=== PATIENT | female | born 2005 | race Caucasian/White ===

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

== ENCOUNTER 2024-04-14 01:25 | Emergency (ER) | payer MEDICAID, SELFPAY ==
[2024-04-14 02:00] VITALS: BP 137/90; PULSE 85; RESP 20; TEMP 36.6; O2SAT 100; BMI 28.3
[2024-04-14 03:38] LABS: Basophils # 0.1 10^3/uL (0.0-0.1); Basophils % 0.6 %; Eosinophils # 0.1 10^3/uL (0.0-0.8); Eosinophils % 0.8 %; Hematocrit 39.1 % (36-47); Lymphocytes # 1.9 10^3/uL (1.5-6.5); Lymphocytes % 15.5 %; Mean Corpuscular HGB Conc 32.5 g/dL (30-55); Mean Corpuscular Volume 86.3 fl (85-98); Mean Platelet Volume 9.2 fL (7.4-10.4); Monocytes # 0.7 10^3/uL (0.2-0.9); Monocytes % 5.9 %; Neutrophils # 9.32 10^3/uL (1.8-8.0); Neutrophils % 76.9 %; Nucleated Red Blood Cells % 0 %; Platelet Count 358 10^3/cmm (157-399); Red Blood Count 4.53 10^6/uL (3.85-5.65); White Blood Count 12.13 10^3/uL (4.5-13.0)
[2024-04-14 03:46] LABS: Bilirubin Urine Negative (Negative); Blood Urine Negative (Negative); Glucose Urine UA Negative (Normal); Ketones Urine Negative (Negative); Leukocyte Esterase Urine Negative (Negative); Nitrate Urine Negative (Negative); Protein Urine Trace (Negative); Urine Appearance Clear (CLEAR); Urine Color Yellow (Yellow); pH Urine 5.5 (5-7)
[2024-04-14 03:51] LABS: Add Urine Microscopic? YES; Bacteria Urine None Seen /hpf; RBC Urine 0-2 /hpf (0-2); Squamous Epithelial Cell Urine 0-5 /hpf (0-5); WBC Urine 0-5 /hpf (0-5)
[2024-04-14 03:54] LABS: HCG Quantitative < 1.00 mIU/mL
[2024-04-14 03:55] LABS: Specific Gravity, Urine 1.038 (1.005-1.030)
--- NOTE | 2024-04-14 04:03 | W.ED.ABDPA2 ---
HPI - Abdominal Pain General: Chief Complaint: Abdominal Pain Stated Complaint: Sharp Pain Possible Time Seen by Provider: 04/14/24 03:34 History of Present Illness: 18-year-old female who began to get lower abdominal/pelvic pain during intercourse earlier this morning. No vaginal bleeding or discharge. No vomiting. She did get nauseated. Pain is improved significantly now. She says she is 2 weeks late for her menstrual period. 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 She has never been . Related Data Home Medications Medication Instructions Recorded Confirmed atomoxetine 40 mg capsule 40 mg PO DAILY 11/24/20 11/24/20 (Strattera) norelgestromin 150 mcg-e.estradiol See Rx Instructions .Route .COMPLEX 11/24/20 11/24/20 35 mcg/24 hr weekly transderm patch (Zafemy) Previous Rx's Medication Instructions Recorded albuterol sulfate 90 mcg/actuation 2 puff inhalation Q4H PRN 03/22/19 aerosol inhaler (ProAir HFA) shortness of breath or wheezing #8.5 grams polyethylene glycol 3350 17 17 gm PO BID #510 grams 03/22/19 gram/dose oral powder Allergies Allergy/AdvReac Type Severity Reaction Status Date / Time No Known Allergies Allergy Verified 03/22/19 08:08 [facility] ED PFSH: Medical History (Updated 04/14/24 @ 04:44 by Jean Carlos Nation DO) ADHD Congenital nystagmus Asthma Surgical History History of intestinal surgery Social History Smoking and tobacco/nicotine status: never used tobacco/nicotine Second hand smoke exposure: No (parents smoke outside) Alcohol intake: never Substance/Drug Use: never Adopted: No Highest education level completed: 9th Grade Physical Exam Const: COMMON NORMALS: no acute distress GENERAL APPEARANCE: cooperative; not ill appearing and not frail appearing HENMT: COMMON NORMALS: normocephalic, atraumatic and Normal external nose present HEAD & SCALP: normocephalic and atraumatic FACE & SINUS: normal facial exam and face symmetric NOSE: Normal external nose present Eye: COMMON NORMALS: Equal, round and reactive pupils present and EOMs intact bilaterally PUPIL: Yes Equal, round and reactive pupils present Neck/C-Spine: GENERAL: Yes trachea midline Chest: CHEST: Yes Symmetrical chest wall rise Resp: COMMON NORMALS: normal respiratory effort, No retractions, No use of accessory muscles and clear to auscultation bilaterally AUSCULTATION: clear to auscultation bilaterally Cardio: COMMON NORMALS: regular rate and regular rhythm RATE: regular rate RHYTHM: regular rhythm GI: COMMON NORMALS: Normal to inspection, nondistended, normoactive bowel sounds present Extremity: COMMON NORMALS: no pedal edema Neuro: AYE COMA SCALE: document GCS findings [place] coma scale eye opening: Spontaneous [place] coma scale verbal response: Orientated [place] coma scale motor response: [place]bey commands [place] coma scale total score: 15 SENSORY EXAM: Yes extremities (intact) Psych: COMMON NORMALS: speech normal SPEECH: Yes normal speech Skin: COMMON NORMALS: no rashes or lesions noted GENERAL SKIN EXAM: no rashes or lesions noted Course Vital Signs: Vital signs: Vital Signs Temperature 98 F 04/14/24 02:00 Pulse Rate 81 04/14/24 05:02 Respiratory Rate 16 04/14/24 05:02 Blood Pressure 117/76 04/14/24 05:02 Pulse Oximetry 98 04/14/24 05:02 MDM - Abdominal Pain Medical Decision Making 18-year-old female with pelvic pain with intercourse. No vaginal discharge or bleeding. Her CBC is normal. Her BMP is normal. She is not . Urinalysis is negative. Pain is improved. She is given Toradol here. She will be discharged. Outpatient follow-up. She will be set up as an outpatient for outpatient ultrasound, should her pain continue. She declined pelvic exam today. Lab Data 04/14/24 03:29 04/14/24 03:29 Labs/Radiology: Laboratory Results WBC 12.13 10^3/uL (4.5-13.0) 04/14/24 03:29 RBC 4.53 10^6/uL (3.85-5.65) 04/14/24 03:29 Hgb 12.70 g/dL (12.4-14.8) 04/14/24 03:29 Hct 39.1 % (36-47) 04/14/24 03:29 MCV 86.3 fl (85-98) 04/14/24 03:29 MCH 28.0 pg (27-33) 04/14/24 03: MCHC 32.5 g/dL (30-55) 04/14/24 03: RDW 14.0 % (12.1-15.1) 04/14/24 03: Plt Count 358 10^3/cmm (157-399) 04/14/24 03: MPV 9.2 fL (7.4-10.4) 04/14/24 03: Neut % (Auto) 76.9 % 04/14/24 03: Lymph % (Auto) 15.5 % 04/14/24 03: [place] % (Auto) 5.9 % 04/14/24 03: Eos % (Auto) 0.8 % 04/14/24 03: Baso % (Auto) 0.6 % 04/14/24 03: Neut # (Auto) 9.32 10^3/uL (1.8-8.0) H 04/14/24 03: Lymph # (Auto) 1.9 10^3/uL (1.5-6.5) 04/14/24 03: [place] # (Auto) 0.7 10^3/uL (0.2-0.9) 04/14/24 03: Eos # (Auto) 0.1 10^3/uL (0.0-0.8) 04/14/24 03: Baso # (Auto) 0.1 10^3/uL (0.0-0.1) 04/14/24 03: Nucleated RBC % (auto) 0 % 04/14/24 03: Nucleated RBCs # 0.0 /100WBC 04/14/24 03: Sodium 139 mmol/L (136-145) 04/14/24 03: Potassium 4.0 mmol/L (3.5-5.1) 04/14/24 03: Chloride 104 mmol/L (98-107) 04/14/24 03: Carbon Dioxide 22 mmol/L (22-29) 04/14/24 03: Anion Gap 17.0 (5-19) 04/14/24 03: BUN 13 mg/dL (6-20) 04/14/24 03:29 Creatinine 0.6 mg/dL (0.5-0.9) 04/14/24 03:29 GFR Calculation 127.5 mL/min (90-130) 04/14/24 03:29 Glucose 101 mg/dL (65-115) 04/14/24 03:29 Calculated Osmolality 288 mOsm/kg (285-295) 04/14/24 03:29 Calcium 9.2 mg/dL (8.5-10.5) 04/14/24 03:29 Total Bilirubin 0.4 mg/dL (0.15-1.2) 04/14/24 03:29 AST 14 U/L (0-32) 04/14/24 03:29 ALT 12 U/L (0-33) 04/14/24 03:29 Alkaline Phosphatase 87 U/L (35-105) 04/14/24 03:29 Total Protein 7.6 g/dL (6.6-8.7) 04/14/24 03:29 Albumin 4.5 g/dL (3.5-5.2) 04/14/24 03:29 Globulin 3.1 g/dL (1.3-4.6) 04/14/24 03:29 Ser , Semi-Qnt < 1.00 mIU/mL 04/14/24 03:29 Urine Color Yellow (Yellow) 04/14/24 03:17 Urine Appearance Clear (CLEAR) 04/14/24 03:17 Urine pH 5.5 (5-7) 04/14/24 03:17 Ur Specific [place] 1.038 (1.005-1.030) H 04/14/24 03:17 Urine Protein Trace (Negative) A 04/14/24 03:17 Urine Glucose (UA) Negative (Normal) 04/14/24 03:17 Urine Ketones Negative (Negative) 04/14/24 03:17 Urine Blood Negative (Negative) 04/14/24 03:17 Urine Nitrate Negative (Negative) 04/14/24 03:17 Urine Bilirubin Negative (Negative) 04/14/24 03:17 Urine Urobilinogen 1.0 mg/dL (Negative) 04/14/24 03:17 Ur Leukocyte Esterase Negative (Negative) 04/14/24 03:17 Urine RBC 0-2 /hpf (0-2) 04/14/24 03:17 Urine WBC 0-5 /hpf (0-5) 04/14/24 03:17 Ur Squamous Epith Cells 0-5 /hpf (0-5) 04/14/24 03:17 Amorphous Sediment Not Reportable 04/14/24 03:17 Urine Bacteria None seen /hpf (NONE) 04/14/24 03:17 Hyaline Casts 0.40 /lpf 04/14/24 03:17 All radiology interpretation(s) finalized by discharge Discharge Plan Discharge Patient Disposition: Home Clinical Impression: Pelvic pain Condition: Stable Prescriptions: No Action albuterol sulfate [ProAir HFA] 90 mcg/actuation HFA aerosol inhaler 2 puff INHALATION Q4H PRN (Reason: shortness of breath or wheezing) Qty: 8.5 3RF polyethylene glycol 3350 17 gram/dose powder 17 gm PO BID Qty: 510 2RF Rx Instructions: Mix 1 capful in 6-8 ounces of water twice daily; may use 3 times daily over the weekend to promote clean-out. Zafemy 150-35 mcg/24 hr patch weekly See Rx Instructions .ROUTE .COMPLEX Rx Instructions: 1 patch transdermally once a week for 3 weeks, then off for 1 week. Strattera 40 mg capsule 40 mg PO DAILY Discharge Orders: Discharge ED (Routine); Ordered 04/14/24 Ordered By: Jean Carlos Nation Referrals: [facility], [Primary Care Provider] - Patient Instructions: Pelvic Pain (ED), Opioid Safety, Pain Management Activity Restrictions/Additional Instructions: Return to the emergency department for brisk vaginal bleeding, soaking a pad an hour for more than 3 hours, development of significant vaginal discharge, worsening pain, fever, any other concerning symptoms. See your doctor this week. No intercourse until pain is resolved, and any bleeding is resolved as well. Coding Level of Care Code ED Court Usher for Naomi Ramírez
[2024-04-14 04:09] LABS: Alanine Aminotransferase 12 U/L (0-33); Albumin Level 4.5 g/dL (3.5-5.2); Alkaline Phosphatase 87 U/L (35-105); Aspartate Amino Transferase 14 U/L (0-32); Blood Urea Nitrogen 13 mg/dL (6-20); Calcium 9.2 mg/dL (8.5-10.5); Carbon Dioxide 22 mmol/L (22-29); Chloride 104 mmol/L (98-107); Creatinine Clr Calc Pharmacy 131.9757; Globulin 3.1 g/dL (1.3-4.6); Glomerular Filtration Rate 127.5 mL/min (90-130); Glucose 101 mg/dL (65-115); Osmolality Calculated 288 mOsm/kg (285-295); Sodium 139 mmol/L (136-145); Total Bilirubin 0.4 mg/dL (0.15-1.2); Total Protein 7.6 g/dL (6.6-8.7)
[2024-04-14] MEDS: ketorolac 30 mg/mL INJ IVP (04:58)
[2024-04-14] MEDS: ondansetron 2 mg/ML SDV 2 mL 4 MG IVP (04:59)
[2024-04-14 05:02] VITALS: BP 117/76; PULSE 81; RESP 16; O2SAT 98
--- NOTE | 2024-04-15 07:56 | DCPLANNER ---
faxed outpatient u/s to scheduling for er f/u
== END 2024-04-14 05:06 | disposition home or self-care (01) ==
PROVIDERS: Emergency Provider Emergency Medicine
DX: R10.2 Pelvic and perineal pain (principal)
CPT/HCPCS: 80053; 81001; 84702; 85025; 96374; 96375; 99284; J1885; J2405

== ENCOUNTER 2024-05-06 13:59 | Outpatient (CLI) | payer SELFPAY ==
--- NOTE | 2024-05-06 14:05 | US_ITS ---
WS: [id number] US pelvic limited [id number] HISTORY: PELVIC PAIN COMPARISON: 06/22/2021 Uterus: 6.4 cm x 5.7 cm x 3.4 cm. Normal size anteverted uterus. No fibroid or mass. Endometrium: 0.6 cm. Negative. Right ovary: 3.1 cm x 2.1 cm x 2.2 cm. Normal size and vascularity, no cystic or solid masses. Left ovary: LEFT ovary is not identified. No adnexal mass. No free fluid in the cul-de-sac. US/US pelvic limited [id number] IMPRESSION: 1. Extremely limited pelvic ultrasound. Patient arrived with a nondistended bl adder and refused transvaginal imaging. 2. LEFT ovary not visualized. 3. Uterus and RIGHT ovary as visualized are negative.
== END 2024-05-06 14:00 | disposition home or self-care (01) ==
LOC: RAD 14:02
PROVIDERS: PCP Family Medicine; Visit Provider Emergency Medicine
DX: R10.2 Pelvic and perineal pain (principal)
CPT/HCPCS: 76857

== ENCOUNTER → 2024-06-25 09:00 | Outpatient (BNVA) | payer SELFPAY | PROVIDERS: PCP Family Medicine; Visit Provider Nurse Practitioner Women's Health | DX: N91.2 Amenorrhea, unspecified (principal); Z32.01 Encounter for pregnancy test, result positive | CPT/HCPCS: 81025; 84702; 86850; 86900 ==

== ENCOUNTER → 2024-07-04 14:00 | Outpatient (BNVA) | payer SELFPAY | PROVIDERS: PCP Family Medicine; Visit Provider Nurse Practitioner Women's Health | DX: Z36.9 Encounter for antenatal screening, unspecified (principal) | CPT/HCPCS: 76801 ==

== ENCOUNTER → 2024-07-18 10:52 | Outpatient (BNVA) | payer MEDICAID, SELFPAY | PROVIDERS: PCP Family Medicine; Visit Provider Nurse Practitioner Women's Health | DX: Z34.90 Encounter for supervision of normal pregnancy, unspecified, unspecified trimester (principal) | CPT/HCPCS: 80307; 84315; 84443; 85025; 86592; 86762; 86803; 87086; 87340; 87491; 87591; 87661; 87806 ==

== ENCOUNTER → 2024-08-01 14:52 | Outpatient (BNVA) | payer MEDICAID, SELFPAY | PROVIDERS: PCP Family Medicine; Visit Provider Obstetrics & Gynecology | DX: Z34.90 Encounter for supervision of normal pregnancy, unspecified, unspecified trimester (principal) | CPT/HCPCS: 84315 ==

== ENCOUNTER → 2024-08-22 14:22 | Outpatient (BNVA) | payer MEDICAID, SELFPAY | PROVIDERS: PCP Family Medicine; Visit Provider Nurse Practitioner Women's Health | DX: Z34.90 Encounter for supervision of normal pregnancy, unspecified, unspecified trimester (principal) | CPT/HCPCS: 84315 ==

== ENCOUNTER → 2024-09-19 14:32 | Outpatient (BNVA) | payer MEDICAID, SELFPAY | PROVIDERS: PCP Family Medicine; Visit Provider Obstetrics & Gynecology | DX: Z36.9 Encounter for antenatal screening, unspecified (principal) | CPT/HCPCS: 76805 ==

== ENCOUNTER → 2024-09-26 14:40 | Outpatient (BNVA) | payer MEDICAID, SELFPAY | PROVIDERS: PCP Family Medicine; Visit Provider Obstetrics & Gynecology | DX: Z34.02 Encounter for supervision of normal first pregnancy, second trimester (principal) | CPT/HCPCS: 84315 ==

== ENCOUNTER → 2024-10-11 12:05 | Outpatient (BNVA) | payer MEDICAID, SELFPAY | PROVIDERS: PCP Family Medicine; Visit Provider Nurse Practitioner Women's Health | DX: Z34.90 Encounter for supervision of normal pregnancy, unspecified, unspecified trimester (principal) | CPT/HCPCS: 84315; 84439; 84443; 84481 ==

== ENCOUNTER 2024-10-14 08:54 | Outpatient (CLI) | payer MEDICAID, SELFPAY ==
[2024-10-14] VITALS (13 sets, daily range): BP systolic 105–108; BP diastolic 62–66; PULSE 81–91; RESP 17; O2SAT 97–99; BMI 27.9
[2024-10-14 09:38] LABS: Glucose Urine UA Negative (Normal); Nitrate Urine Negative (Negative); Specific Gravity, Urine 1.022 (1.005-1.030)
[2024-10-14] MEDS: nitrofurantoin SR (BID) 100 mg Capsule PO (10:12)
== END 2024-10-14 10:13 | disposition home or self-care (01) ==
LOC: OPOB 08:58 → OBGYN 08:59
PROVIDERS: PCP Family Medicine; Visit Provider Obstetrics & Gynecology
DX: O99.891 Other specified diseases and conditions complicating pregnancy (principal); Z3A.00 Weeks of gestation of pregnancy not specified
CPT/HCPCS: 81001; 87086; 99211; J9999

== ENCOUNTER → 2024-11-13 16:51 | Outpatient (BNVA) | payer MEDICAID, SELFPAY | PROVIDERS: PCP Family Medicine; Visit Provider Obstetrics & Gynecology | DX: Z34.90 Encounter for supervision of normal pregnancy, unspecified, unspecified trimester (principal) | CPT/HCPCS: 82950; 84315; 85025 ==

== ENCOUNTER → 2024-11-28 16:16 | Outpatient (BNVA) | payer MEDICAID, SELFPAY | PROVIDERS: PCP Family Medicine; Visit Provider Obstetrics & Gynecology | DX: Z34.90 Encounter for supervision of normal pregnancy, unspecified, unspecified trimester (principal) | CPT/HCPCS: 84315 ==

== ENCOUNTER 2024-12-11 11:11 | Outpatient (CLI) | payer MEDICAID, SELFPAY ==
--- NOTE | 2024-12-11 11:00 | USR_ITS ---
PROCEDURE INFORMATION: Exam: US , Follow up Exam date and time: 12/11/2024 11:27 AM Age: 19 years old Clinical indication: Screening exam; Routine US, uterus; Additional info: Z34.90 - encounter for supervision of normal , u. . . , LABS AND CLINICAL REPORTS: Gestational age (Established): 33 w 0 d Estimated due date (Established): 01/29/2025 TECHNIQUE: Imaging protocol: Transabdominal ultrasound of the uterus, real time with image documentation. Follow-up (eg, re-evaluation of size by measuring standard growth parameters and amniotic fluid volume, re-evaluation of organ system(s) suspected or confirmed to be abnormal on a previous scan). COMPARISON: US OB >= 14 weeks fetus [id number] 09/19/2024 2:40 PM FINDINGS: Gestation: Single intrauterine gestation in the cephalic presentation. heart rate: 138 bpm Amniotic fluid index: TRINA is 13.19 cm. Largest pocket measures 3.9 cm. Placenta: Posterior and unremarkable. BIOMETRY: Estimated weight: 2121.6 g (4 lb 11 oz) EFW by AC, BPD, FL, HC, [place] 1985 44.1 percentile. Biparietal diameter (BPD): 8.28 cm. EGA (BPD) is 33 w 2 d. 52.9 % percentile Head circumference (HC): 30.22 cm. EGA (HC) is 33 w 4 d. 26.6 % percentile Abdominal circumference (AC): 28.99 cm. EGA (AC) is 33 w 0 d. 50.8 % percentile Femur length (FL): 6.41 cm. EGA (FL) is 33 w 1 d. 41 % percentile AUA: 33 weeks 2 days with AGNES 01/27/2025 HC/AC: 1.04. (Normal range: 0.96 - 1.11) FL/HC: 21.21. (Normal range: 19.76 - 21.59) FL/BPD: 77.42. (Normal range: 71 - 87) FL/AC: 22.11. (Normal range: 20 - 24) MATERNAL: Cervix: Cervical length measures 5.2 cm. Appears long and closed. US/[place] [id number] IMPRESSION: 1. Single intrauterine gestation in the cephalic presentation with FHR 138 bpm. 2. Posterior placenta, unremarkable. 3. AUA 33 weeks 2 days with EFW 2121.6 g (4 lb 11 oz) at 44.1 percentile. 4. TRINA 13.19 cm.
== END 2024-12-11 11:12 | disposition home or self-care (01) ==
LOC: RAD 11:12
PROVIDERS: PCP Family Medicine; Visit Provider Obstetrics & Gynecology
DX: Z34.93 Encounter for supervision of normal pregnancy, unspecified, third trimester (principal); Z3A.33 33 weeks gestation of pregnancy
CPT/HCPCS: 76816

== ENCOUNTER → 2024-12-12 16:03 | Outpatient (BNVA) | payer MEDICAID, SELFPAY | PROVIDERS: PCP Family Medicine; Visit Provider Obstetrics & Gynecology | DX: Z34.90 Encounter for supervision of normal pregnancy, unspecified, unspecified trimester (principal) | CPT/HCPCS: 84315 ==

== ENCOUNTER → 2024-12-26 15:01 | Outpatient (BNVA) | payer MEDICAID, SELFPAY | PROVIDERS: PCP Family Medicine; Visit Provider Obstetrics & Gynecology | DX: Z34.90 Encounter for supervision of normal pregnancy, unspecified, unspecified trimester (principal) | CPT/HCPCS: 84315 ==

== ENCOUNTER → 2025-01-02 13:13 | Outpatient (BNVA) | payer MEDICAID, SELFPAY | PROVIDERS: PCP Family Medicine; Visit Provider Nurse Practitioner Women's Health | DX: Z34.93 Encounter for supervision of normal pregnancy, unspecified, third trimester (principal); Z3A.36 36 weeks gestation of pregnancy | CPT/HCPCS: 84315; 87081 ==

== ENCOUNTER → 2025-01-09 13:30 | Outpatient (BNVA) | payer MEDICAID, SELFPAY | PROVIDERS: PCP Family Medicine; Visit Provider Nurse Practitioner Women's Health | DX: O26.86 Pruritic urticarial papules and plaques of pregnancy (PUPPP) (principal); Z3A.00 Weeks of gestation of pregnancy not specified | CPT/HCPCS: 80053; 81000; 84550; 85025 ==

== ENCOUNTER → 2025-01-16 14:30 | Outpatient (BNVA) | payer MEDICAID, SELFPAY | PROVIDERS: PCP Family Medicine; Visit Provider Obstetrics & Gynecology | DX: Z34.90 Encounter for supervision of normal pregnancy, unspecified, unspecified trimester (principal) | CPT/HCPCS: 84315 ==

== ENCOUNTER → 2025-01-23 15:20 | Outpatient (BNVA) | payer MEDICAID, SELFPAY | PROVIDERS: PCP Family Medicine; Visit Provider Obstetrics & Gynecology | DX: Z34.90 Encounter for supervision of normal pregnancy, unspecified, unspecified trimester (principal) | CPT/HCPCS: 84315 ==

== ENCOUNTER 2025-01-30 15:11 | Oncology outpatient (recurring) (ONCR) | payer MEDICAID, SELFPAY ==
[2025-01-20] MEDS: iron sucrose 200 MG/100 ML BAG IV (13:50)
[2025-01-20 15:10] VITALS: BP 128/74; PULSE 85; TEMP 37.2; O2SAT 99
[2025-01-22] MEDS: iron sucrose 200 MG/100 ML BAG IV (13:48)
[2025-01-22 14:27] VITALS: BP 113/72; PULSE 85; RESP 16; TEMP 36.8; O2SAT 98
[2025-01-24 10:43] VITALS: BP 122/82; PULSE 92; RESP 16; TEMP 36.9; O2SAT 99
[2025-01-24] MEDS: iron sucrose 200 MG/100 ML BAG IV (10:46)
[2025-01-24 11:24] VITALS: BP 134/84; PULSE 88; RESP 16; TEMP 37.3; O2SAT 98
[2025-01-27 13:28] VITALS: BP 122/80; PULSE 96; RESP 16; TEMP 36.6; O2SAT 99
[2025-01-27] MEDS: iron sucrose 200 MG/100 ML BAG IV (13:52)
[2025-01-27 14:28] VITALS: BP 115/77; PULSE 89; TEMP 37.1; O2SAT 98
[2025-01-30] MEDS: iron sucrose 200 MG/100 ML BAG IV (15:25)
[2025-01-30 16:49] VITALS: BP 124/76; PULSE 124; RESP 16; TEMP 36.9; O2SAT 98
== END 2025-02-09 23:59 | disposition home or self-care (01) ==
PROVIDERS: PCP Family Medicine; Visit Provider Nurse Practitioner Women's Health
DX: D50.9 Iron deficiency anemia, unspecified; Z79.899 Other long term (current) drug therapy; Z3A.40 40 weeks gestation of pregnancy; Z53.9 Procedure and treatment not carried out, unspecified reason
CPT/HCPCS: 84315; 96361; 96365; J1756; J7040; J7050

== ENCOUNTER 2025-02-03 00:23 | Inpatient (IN) | payer MEDICAID, SELFPAY ==
[2025-02-02] VITALS (9 sets, daily range): BP systolic 110–150; BP diastolic 73–98; PULSE 75–97; TEMP 36.6; BMI 30.4
[2025-02-02 21:26] LABS: Hematocrit 31.5 % (36-47); Hemoglobin 10.50 g/dL (11.27-16.99); Mean Corpuscular HGB Conc 33.3 g/dL (30-55); Mean Corpuscular Hemoglobin 29.2 pg (27-33); Mean Corpuscular Volume 87.7 fl (85-98); Nucleated Red Blood Cells % 0 %; Platelet Count 223 10^3/cmm (157-399); Red Blood Count 3.59 10^6/uL (3.85-5.65); White Blood Count 9.46 10^3/uL (3.29-11.43)
[2025-02-03] VITALS (21 sets, daily range): BP systolic 111–150; BP diastolic 64–96; PULSE 69–98; TEMP 36.5–36.7; O2SAT 99
--- NOTE | 2025-02-03 00:50 | PM.OBGYHP ---
Providers/Chief Complaint Admitting Physician: Isael Mclaughlin MD Primary PASTEURIZING SUPERVISOR: Isael Mclaughlin MD Primary Care Provider: Gabriel Romero MD Chief Complaint: Induction of Labor HPI PASTEURIZING SUPERVISOR History of Present Illness Desiree Hammer is a 19 year old female G1 EDC January 29, 2025 At 40 w 4 d No complications Admitted for induction of labor No c/o + active movements Present Details : 1 Para: 0 Labs Rubella: Immune RPR: Negative GBS: Negative Medications/Allergies Home Medications ?Medication ?Instructions ?Recorded ?Confirmed ?Last Taken ?Type albuterol sulfate 90 mcg/actuation 2 puff inhalation Q6H PRN sob 06/25/24 02/02/25 Unknown History aerosol inhaler (Ventolin HFA) vit 122-ferrous fumarate 1 tab PO DAILY 06/25/24 02/02/25 02/01/25 History 27 mg iron-folic acid 800 mcg tablet ( Multi) bupropion HCl 150 mg tablet,12 hr 150 mg PO DAILY #30 tabs 11/28/24 02/02/25 02/01/25 Rx sustained-release (Wellbutrin SR) hydroxyzine pamoate 25 mg capsule 25 mg PO QID PRN itching #30 caps 01/03/25 02/02/25 02/01/25 Rx Allergies Allergy/AdvReac Type Severity Reaction Status Date / Time No Known Allergies Allergy Verified 02/02/25 20:05 PFS PASTEURIZING SUPERVISOR PFSH: Medical History (Updated 01/30/25 @ 15:14 by Brayan Dodson MD) ADHD Congenital nystagmus Asthma Surgical History Hx of abdominoplasty Hx of breast augmentation 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 Family History Grandmother Breast cancer Denies family history of Colon cancer Ovarian cancer Diabetes Heart disease Hypertension Uterine cancer Thyroid disease Stroke Social History Smoking and tobacco/nicotine status: never used tobacco/nicotine Second hand smoke exposure: No (parents smoke outside) Alcohol intake: never Substance/Drug Use: never Adopted: No Highest education level completed: 9th Grade History History History 1 Term 0 Miscarriages/Ectopic Living Children Care AGNES Calculator Estimated Delivery Date Method Current WG Current Estimate 01/29/25 LMP (Certain) 40w 5d Other Estimates 02/05/25 Ultrasound #1 39w 5d Specific Issues/Plans NAUSEA AND VOMITING: reglan ANXIETY AND DEPRESSION: scored 20 on initial EPDS, discussed this at visit, started on zoloft and vistaril ACID REFLUX: pepcid BID sent PUPPPS RASH Vitals/I&O/Wt Last Vital Signs Temp 98.0 F 02/03/25 04:54 Pulse 88 02/03/25 22:33 BP 119/70 02/03/25 22:33 O2 Del Method Room Air 02/03/25 07:05 02/03/25 02/03/25 02/03/25 06:59 14:59 22:59 Intake Total 12.417 / 12.417 32.5 / 44.917 Balance 12.417 / 12.417 32.5 / 44.917 Weight last 48 hrs Weight 161 lb Weight 161 lb Physical Exam Narrative: Weight 161 lbs; 5?1? VS normal General comfortable, awake, alert Lungs: clear Cor: RRR Abd: nontender Cervix: closed / 50% / -4 / posterior Ext: normal External monitor: heart tracing good variability, + accelerations Data 02/02/25 20:45 Results Labs OB ([facility]): Obstetrics US 12/11/24 Blood Type A Positive 02/02/25 Antibody Screen Negative 02/02/25 Hct, (36-47) 31.5 % L 02/02/25 Hgb, (11.27-16.99) 10.50 g/dL L 02/02/25 Rho(D) Type Rh positive 02/02/25 Plt Count, (157-399) 223 10^3/cmm 02/02/25 Hep Bs Antigen, (Nonreactive) Non-reactive 07/18/24 Hepatitis C Antibody, (Nonreactive) Non-reactive 07/18/24 Rubella IgG Antibody, (0.0-10.0) 91.5 IU/mL H 07/18/24 RPR, (Nonreactive) Nonreactive 07/18/24 HIV 1&2 Ab & HIV 1 Ag, (Non-Reactiv) Non-reactive 07/18/24 TSH, (0.27-4.20) 2.59 uIU/mL 10/11/24 Free T4, (0.82-1.77) 0.78 ng/dL L 10/11/24 Glucose 1 Hr 50 gm, (85-140) 106 mg/dL 11/13/24 Uric Acid, (2.4-5.7) 3.7 mg/dL 01/09/25 Ser , Semi-Qnt 90192.00 mIU/mL 06/25/24 HCG, Qual, (Negative) Positive H 06/25/24 Urine Opiates Screen, (Negative) Negative ng/mL 07/18/24 Ur Barbiturates Screen, (Negative) Negative ng/mL 07/18/24 Ur Phencyclidine Scrn, (Negative) Negative ng/mL 07/18/24 Ur Amphetamines Screen, (Negative) Negative ng/mL 07/18/24 U Benzodiazepines Scrn, (Negative) Negative ng/mL 07/18/24 Urine Cocaine Screen, (Negative) Negative ng/mL 07/18/24 U Marijuana (THC) Screen, (Negative) Negative ng/mL 07/18/24 Micro Urine Specimen 10/14/24 A&P Assessment and plan 1. : 40 w 4 d Admit for induction of labor Fetus reassuring Plan Cytotec 25 ug intravaginal GBS negative Rh + PDMP PDMP Reviewed: Not Reviewed Attestations Medical Necessity Statement*: Patient at 40 w 4 d, admitted for induction of labor Coding Level of Care Code Acute Code for Chg Fwd Diagnoses Z34.90
--- NOTE | 2025-02-03 08:15 | P.PN_ITS ---
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 2 Subjective: Interval history: Feeling mild UCs VS normal Fetus reassuring Received two doses of Cytotec 25 ug intravaginal Plan start Pitocin per protocol Labor: Station: -2 Amniotic Membrane Status: Intact Monitor Mode: External Contraction Pattern: Regular Vitals/I&O/Wt Last Vital Signs Temp 98.0 F 02/03/25 04:54 Pulse 88 02/03/25 22:33 BP 119/70 02/03/25 22:33 O2 Del Method Room Air 02/03/25 07:05 02/03/25 02/03/25 02/03/25 06:59 14:59 22:59 Intake Total 12.417 / 12.417 32.5 / 44.917 Balance 12.417 / 12.417 32.5 / 44.917 Weight last 48 hrs Weight 161 lb Weight 161 lb Data 02/02/25 20:45 A&P Assessment and plan 1. : PDMP PDMP Reviewed: Not Reviewed Attestations 2 Medical Necessity Statement*: Patient at 40 w 5 d, admitted for induction of labor Coding Level of Care Code Acute Code for Chg Fwd Diagnoses Z34.90
[2025-02-03] MEDS: oxytocin 30 UNIT/500 ML BAG IV (11:10)
--- NOTE | 2025-02-03 17:52 | P.ANESASSM_ITS ---
Pre-Anesthetic Assessment Height/Weight: Height 1.55 m Weight 73.028 kg Temp Pulse BP O2 Del Method 98.0 F 90 121/75 Room Air 02/03/25 04:54 02/03/25 14:31 02/03/25 14:31 02/03/25 07:05 Epidural Familial anesthetic complications: None Was Beta Ilsa taken within 24 hours: N/A Was Clonidine taken within 24 hours: N/A Last intake: 0800 solids Social No alcohol and No tobacco Exam alert, oriented x 3, clear to auscultation bilaterally and regular rate & rhythm Airway Submandibular: within normal limits Cervical ROM: within normal limits Mallampati: Class II Dentition: chipped (Bottom tooth chipped) History/ROS No significant history except as noted and No significant complaints Pulmonary Asthma (Uses inhaler infrequently) CV/HEM Anemia None reported Hepatic None reported GI Gastroesophageal Reflux Disease Metabolic None reported Musc/skel None reported Neuropsych Anxiety and Depression Anesthetic Plan ASA status: 2 Anesthesia: Anesthesia Evaluation, General and Regional (specify below) Medications/Allergies Home Medications ?Medication ?Instructions ?Recorded ?Confirmed ?Last Taken ?Type albuterol sulfate 90 mcg/actuation 2 puff inhalation Q 6H PRN sob 06/25/24 02/02/25 Unknown History aerosol inhaler (Ventolin HFA) vit 122-ferrous fumarate 1 tab PO DAILY 06/2502/02/25 02/01/25 History 27 mg iron-folic acid 800 mcg tablet ( Multi) bupropion HCl 150 mg tablet,12 hr 150 mg PO DAILY #30 tabs 11/28/24 02/02/25 02/01/25 Rx sustained-release (Wellbutrin SR) hydroxyzine pamoate 25 mg capsule 25 mg PO QID PRN itc mary ellen #30 caps 01/03/25 02/02/25 02/01/25 Rx Allergies Allergy/AdvReac Type Severity Reaction Status Date / Time No Known Allergies Allergy Verified 02/02/25 20:05 Current Medications Generic Name Dose Route Start Last Admin Trade Name Freq PRN Reason Stop Dose Admin Hydroxyzine Pamoate 50 mg 02/02/25 21:22 02/02/25 22:44 Hydroxyzine 25 Mg Capsule PO 50 mg QID PRN Administration sleep, agitation or itching Dextrose/Lactated Ringer's 1,000 mls @ 125 mls/hr 02/02/25 21:21 02/03/25 11:10 Dextrose 5%-Lactated Ringers IV 125 mls/hr .Q8H PRN Administration per label comments Oxytocin 30 unit in 500 mls @ 1 mls/hr 02/03/25 09:30 02/03/25 14:55 Pitocin IV 6 milliunit/min .Q24H ADOLPH 6 mls/hr Protocol Titration 1 MILLIUNIT/MIN PFSH Anesthesia Medical History (Updated 01/30/25 @ 15:14 by Brayan Dodson MD) ADHD Congenital nystagmus Asthma Surgical History Hx of abdominoplasty Hx of breast augmentation 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 Family History Grandmother Breast cancer Denies family history of Colon cancer Ovarian cancer Diabetes Heart disease Hypertension Uterine cancer Thyroid disease Stroke Social History Smoking and tobacco/nicotine status: never used tobacco/nicotine Second hand smoke exposure: No (parents smoke outside) Alcohol intake: never Substance/Drug Use: never Adopted: No Highest education level completed: 9th Grade Female Reproductive History : 1 Data Anesthesia 02/02/25 20:45 Short CBC 02/02/25 Range/Units 20:45 WBC 9.46 (3.29-11.43) 10^3/uL Hgb 10.50 L (11.27-16.99) g/dL Hct 31.5 L (36-47) % MCV 87.7 (85-98) fl Plt Count 223 (157-399) 10^3/cmm Neut % (Auto) 83.3 % Neut # (Auto) 7.88 H (1.8-7.7) 10^3/uL Blood Bank 02/02/25 20:45 Blood Type A Positive Rho(D) Type Rh positive Antibody Screen Negative
--- NOTE | 2025-02-03 19:50 | PM.OBGYPN ---
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 : PDMP PDMP Reviewed: Not Reviewed Attestations Medical Necessity Statement*: Patient at 40 w 5 d, admitted for induction of labor Coding Level of Care Code Acute Code for Chg Fwd Diagnoses Z34.90
[2025-02-04] VITALS (95 sets, daily range): BP systolic 104–164; BP diastolic 53–93; PULSE 62–103; RESP 16–17; TEMP 37.1–37.4; O2SAT 97–100
[2025-02-04] MEDS: ROPivacaine premix 200 MG/100 ML PREMIX 10 MG EPIDURAL ×2 (00:12→07:20)
--- NOTE | 2025-02-04 00:20 | P.ANES_ITS ---
Anesthesia Procedures Procedure/Date: 02/04/25 Epidural: Time Out Performed: Yes Consents Signed: Procedure Consent and NPO Consent Consent: requested by attending/covering physician, from patient, risks and benefits reviewed and patient agrees to proceed Lumbar Level: L3-L4 Epidural position: sitting Epidural procedure: sterile prep of area (betadine), 1% lidocaine to numb the area (3 mLs), neg for paresthesia, test dose given, 1.5% xylocaine 1:200k epi (3 mL/2 mL), placed PCEA, no systemic response, sterile dressing applied, L.U.D. no apparent complications and 0.2% Ropiavacaine @ mls/hr (10 mLs/hr) Additional Comments: ANTELMO at 5.5, catheter threaded to 11cm. Negative aspiration for blood and CSF. 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
--- NOTE | 2025-02-04 08:12 | PM.MISC ---
Miscellaneous Note Note: cvx 1-2/70/-2, vertex. Bhandari balloon placed. epidural has hot spot, nurse to check with anesthesia.FHR reactive. Took over this am. Dr Kee
--- NOTE | 2025-02-04 12:14 | PM.MISC ---
Miscellaneous Note Note: cvx 4-5/80/-2, vertex, AROM clear and cysts palpated on skull. FHR reactive, one variable after rupture. Dr. Kee
[2025-02-04] MEDS: ROPivacaine premix 200 MG/100 ML PREMIX 13 MG EPIDURAL (14:33)
--- NOTE | 2025-02-04 15:47 | PM.MISC ---
Miscellaneous Note Note: Called by staff for good FHR but unusual check. Exam face presentation, can feel nose mouth. Advised PCS, she asked about rotating, explained too many risks in her first . Proceed with cs when team ready, pitocin stopped. Dr. Kee
[2025-02-04] MEDS: citric acid-sodium citrate 30 mL UDC PO (16:05)
[2025-02-04] MEDS: metoclopramide 5 mg/mL SDV 2 mL 10 MG IVP (16:05)
[2025-02-04] MEDS: ceFAZolin 2,000 mg SDV 2000 MG IVP (16:05)
--- NOTE | 2025-02-04 16:55 | PM.DELIVERY ---
Delivery Note: Date of delivery: February 04, 2025 Pre-delivery diagnoses: IUP@40+5 wks, malpresentation, with face Post-delivery diagnoses: same Procedure: PLTCS History History History 1 Term 0 Miscarriages/Ectopic Living Children A&P PDMP PDMP Reviewed: Not Reviewed Coding Level of Care Code Acute Code for Chg Fwd
--- NOTE | 2025-02-04 16:56 | PM.OP ---
Operative Report Date of procedure: February 04, 2025 Pre-op diagnosis: IUP@ 40+5 weeks, malpresentation, face Post-op diagnosis: same Procedure done: PLTCS Specimens removed/disposition: placenta Pathology: none Surgeon: Kelly Kee MD Vessel Ordinary Seaman: OR staff Estimated blood loss: 600 Complications: face presentation Findings: viable female , clear fluid, adnexa never visible due to peritoneal adhesions uterus from intraabdominal contents Procedure: The patient was taken to OR prepped and draped in sterile fashion. Epidural anesthesia was tested and adequate. Time out was done, consent verified. A pfannensteil incision was made and carried through layers with fascia incised and opened then rectus muscles and peritoneum seen. This layer was thick and until uterus was exposed. Bladder blade placed. A low transverse incision was made and extended. The baby was then delivered head first and laid on mom's belly. The cord was clamped and cut after 30 second delay. The posterior placenta was removed and uterus attempted exteriorize but peritoneum was adherent to all surfaces. Uterus closed in 2 layers in situ. Bleeding was stopped and hemostasis seen. Muscle reapproximated then fascia layer closed. The subcutaneous layer was cleaned and made hemostatic then skin closed with insorb. Steri strips and bandage placed. All counts correct and patient to recovery in stable condition.
[2025-02-05] VITALS (10 sets, daily range): BP systolic 116–131; BP diastolic 73–91; PULSE 65–106; RESP 14–16; TEMP 35.8–36.6
[2025-02-05] MEDS: oxyCODONE-APAP 5-325 mg Tablet PO ×2 (05:15→16:35)
[2025-02-05 06:00] LABS: Hematocrit 27.5 % (36-47); Hemoglobin 9.10 g/dL (11.27-16.99); Mean Corpuscular HGB Conc 33.1 g/dL (30-55); Mean Corpuscular Hemoglobin 29.4 pg (27-33); Mean Corpuscular Volume 89.0 fl (85-98); Platelet Count 183 10^3/cmm (157-399); Red Blood Count 3.09 10^6/uL (3.85-5.65); White Blood Count 13.85 10^3/uL (3.29-11.43)
[2025-02-05] MEDS: PRENATAL VIT NO.130/IRON/FOLIC 1 EACH TABLET PO (07:22)
--- NOTE | 2025-02-05 13:02 | P.PN_ITS ---
Subjective 2 Subjective: POD#1, Doing well, lochia wnl, eating, voiding, walking. Working out being a Mom. Vitals/I&O/Wt Last Vital Signs Temp 99.4 F 02/04/25 14:00 Pulse 65 02/05/25 08:23 Resp 16 02/05/25 05:15 BP 127/83 02/05/25 08:23 Pulse Ox 100 02/04/25 17:25 O2 Del Method Room Air 02/04/25 17:25 02/04/25 02/05/25 02/05/25 22:59 06:59 14:59 Intake Total 1300 / 2438.632 Output Total 2350 / 2350 725 / 3075 Balance -1050 / 88.632 -725 / -636.368 Physical Exam 2 Narrative: Appearance: grossly normal Attitude: calm and engaged, appropriate eye contact Const: no acute distress, cooperative Chest: Symmetrical chest wall rise Resp: normal respiratory effort, clear to auscultation bilaterally Cardio: regular rate and regular rhythm GI: Soft to palpation, gravid, Non Tender, no Guarding dressing dry Extremity: no signs DVT, + edema Neuro: oriented x3 and moves all extremities, speech normal Psych: mental status grossly normal, and Normal thought process present Urinary Catheter Management: Bhandari Latex: Cath Placed During This Visit: yes, but has since been removed by the nurse Reason for Continuing Indwelling Catheter: Decision to DC Catheter Urinary Catheter Date of Insertion: 02/04/25 Urinary Catheter Time of Insertion: 01:45 Date Urinary Catheter Removed: 02/05/25 Time Urinary Catheter Discontinued: 02:45 Data 02/05/25 05:50 A&P Assessment and plan 1. 40 weeks gestation of : 2. delivery delivered: Routine post op care, Bottle feeding. Discharge planning discussed due to holiday tomorrow, ok to stay to monday. PDMP PDMP Reviewed: Not Reviewed Attestations 2 Medical Necessity Statement*: OB Coding Level of Care Code Acute Code for Chg Fwd Diagnoses 40 weeks gestation of Z3A.40 delivery delivered O82
[2025-02-05] MEDS: ferrous sulfate EC 325 mg Tablet PO (13:14)
[2025-02-06] MEDS: PRENATAL VIT NO.130/IRON/FOLIC 1 EACH TABLET PO (04:35)
[2025-02-06 04:41] VITALS: BP 139/78; PULSE 108
[2025-02-06 04:42] VITALS: RESP 16; TEMP 36.6; TEMP 36.7
[2025-02-06 10:16] VITALS: BP 120/78; PULSE 78
[2025-02-06 10:33] VITALS: RESP 16
[2025-02-06] MEDS: oxyCODONE-APAP 5-325 mg Tablet PO (10:33)
[2025-02-06] MEDS: ferrous sulfate EC 325 mg Tablet PO (10:34)
--- NOTE | 2025-02-06 12:06 | PM.OBGYDC ---
Discharge Providers PLATFORM CONSULTANT Date of Admission: 02/03/25 00:23 Date of Discharge: 02/06/25 Attending Provider at Admission: Isael Mclaughlin MD Attending Provider at Discharge: Kelly Kee MD Primary Care Provider: Gabriel Romero MD Diagnoses at Discharge Discharge Diagnosis 1. 40 weeks gestation of : 2. delivery delivered: Reason for Visit Reason for Visit: Induction of Labor Hospital Course Hospital Course Admitted for IOL. She progressed. However baby developed neck extension with face presentation and would not change. She was then delivered by PLTCS. She progressed in diet, ambulation and pain control. See chart for details. Discharged home as stable pp. Information Peripartum Data: Infant Delivery Method: Physical Exam Narrative: Appearance: grossly normal Attitude: calm and engaged, appropriate eye contact Const: no acute distress, oriented x3 cooperative Chest: Symmetrical chest wall rise Resp: normal respiratory effort, clear to auscultation bilaterally Cardio: regular rate and regular rhythm GI: Soft to palpation, fundus firm, incision clean dry intact Extremity: normal inspection, + edema Neuro: oriented x3 and moves all extremities, speech normal Psych: mental status grossly normal, and Normal thought process present Urinary Catheter Management: Bhandari Latex: Cath Placed During This Visit: yes, but has since been removed by the nurse Reason for Continuing Indwelling Catheter: Decision to DC Catheter Urinary Catheter Date of Insertion: 02/04/25 Urinary Catheter Time of Insertion: 01:45 Date Urinary Catheter Removed: 02/05/25 Time Urinary Catheter Discontinued: 02:45 History History History 1 Term 0 Miscarriages/Ectopic Living Children Discharge Data Studies Completed and Pending Laboratory Results WBC 13.85 10^3/uL (3.29-11.43) H 02/05/25 05:50 RBC 3.09 10^6/uL (3.85-5.65) L 02/05/25 05:50 Hgb 9.10 g/dL (11.27-16.99) L 02/05/25 05:50 Hct 27.5 % (36-47) L 02/05/25 05:50 MCV 89.0 fl (85-98) 02/05/25 05:50 MCH 29.4 pg (27-33) 02/05/25 05:50 MCHC 33.1 g/dL (30-55) 02/05/25 05:50 RDW 18.2 % (12.1-15.1) H 02/05/25 05:50 Plt Count 183 10^3/cmm (157-399) 02/05/25 05:50 MPV 9.8 fL (7.4-10.4) 02/05/25 05:50 Neut % (Auto) 83.3 % 02/02/25 20:45 Lymph % (Auto) 10.6 % 02/02/25 20:45 [place] % (Auto) 4.5 % 02/02/25 20:45 Eos % (Auto) 0.2 % 02/02/25 20:45 Baso % (Auto) 0.4 % 02/02/25 20:45 Neut # (Auto) 7.88 10^3/uL (1.8-7.7) H 02/02/25 20:45 Lymph # (Auto) 1.0 10^3/uL (0.8-4.8) 02/02/25 20:45 [place] # (Auto) 0.4 10^3/uL (0.2-0.9) 02/02/25 20:45 Eos # (Auto) 0.0 10^3/uL (0.0-0.8) 02/02/25 20:45 Baso # (Auto) 0.0 10^3/uL (0.0-0.1) 02/02/25 20:45 Nucleated RBC % (auto) 0 % 02/02/25 20:45 Nucleated RBCs # 0.0 /100WBC 02/02/25 20:45 Blood Type A Positive 02/02/25 20:45 Rho(D) Type Rh positive 02/02/25 20:45 Antibody Screen Negative 02/02/25 20:45 Procedures Performed PLTCS Vitals Last Vital Signs Temp 98.0 F 02/06/25 04:42 Pulse 78 02/06/25 10:16 Resp 16 02/06/25 10:33 BP 120/78 02/06/25 10:16 Pulse Ox 100 02/04/25 17:25 O2 Del Method Room Air 02/04/25 17:25 Results Labs OB ([facility]): Obstetrics US 12/11/24 Blood Type A Positive 02/02/25 Antibody Screen Negative 02/02/25 Hct, (36-47) 27.5 % L 02/05/25 Hgb, (11.27-16.99) 9.10 g/dL L 02/05/25 Rho(D) Type Rh positive 02/02/25 Plt Count, (157-399) 183 10^3/cmm 02/05/25 Hep Bs Antigen, (Nonreactive) Non-reactive 07/18/24 Hepatitis C Antibody, (Nonreactive) Non-reactive 07/18/24 Rubella IgG Antibody, (0.0-10.0) 91.5 IU/mL H 07/18/24 RPR, (Nonreactive) Nonreactive 07/18/24 HIV 1&2 Ab & HIV 1 Ag, (Non-Reactiv) Non-reactive 07/18/24 TSH, (0.27-4.20) 2.59 uIU/mL 10/11/24 Free T4, (0.82-1.77) 0.78 ng/dL L 10/11/24 Glucose 1 Hr 50 gm, (85-140) 106 mg/dL 11/13/24 Uric Acid, (2.4-5.7) 3.7 mg/dL 01/09/25 Ser , Semi-Qnt 19384.00 mIU/mL 06/25/24 HCG, Qual, (Negative) Positive H 06/25/24 Urine Opiates Screen, (Negative) Negative ng/mL 07/18/24 Ur Barbiturates Screen, (Negative) Negative ng/mL 07/18/24 Ur Phencyclidine Scrn, (Negative) Negative ng/mL 07/18/24 Ur Amphetamines Screen, (Negative) Negative ng/mL 07/18/24 U Benzodiazepines Scrn, (Negative) Negative ng/mL 07/18/24 Urine Cocaine Screen, (Negative) Negative ng/mL 07/18/24 U Marijuana (THC) Screen, (Negative) Negative ng/mL 07/18/24 Micro Urine Specimen 10/14/24 Discharge Plan Discharge Patient Disposition: Home Condition: Stable Prescriptions: New ibuprofen 800 mg Tablet 800 mg PO TID Qty: 0 0RF oxycodone-acetaminophen 5-325 mg Tablet 1 - 2 tab PO Q4H PRN (Reason: Moderate To Severe Pain) Qty: 14 0RF ferrous sulfate 325 mg (65 mg iron) Tablet,Delayed Release (Dr/Ec) 325 mg PO BIDWM Qty: 0 0RF Continued albuterol sulfate [Ventolin HFA] 90 mcg/actuation HFA aerosol inhaler 2 puff inhalation Q6H PRN (Reason: sob) Multi 27-800 mg-mcg tablet 1 tab PO DAILY bupropion HCl [Wellbutrin SR] 150 mg tablet sustained-release 12 hr 150 mg PO DAILY Qty: 30 3RF hydroxyzine pamoate 25 mg capsule 25 mg PO QID PRN (Reason: itching) Qty: 30 0RF Rx Instructions: 1-2 tablets every 6 hours as needed Discharge Order = DC NOW: Discharge Order (Routine); Ordered 02/06/25 Ordered By: Kelly Kee Referrals: Brayan Dodson MD [Physician, PLATFORM CONSULTANT] - 02/10/25 8:45 am Referral Note: 6 week 03/24 @0845 Patient Instructions: Depression (DC), Opioid Safety (DC), Preeclampsia and Eclampsia After Delivery (GEN), Hemorrhage (DC), OB C, OB Discharge Report, OB Food/Drug Interaction Guide, Opioid Safety, OB Home Care, Patient Portal & [place]ille Instructions, Abnormal Bleeding Activity Restrictions/Additional Instructions: Pelvic rest x 6 weeks, no heavy lifting x 2 weeks Discharge Attestations PLATFORM CONSULTANT Time Spent in Discharge Care*: less than 30 min Coding Level of Care Code Acute Code for Chg Fwd Diagnoses 40 weeks gestation of Z3A.40 delivery delivered O82
[2025-02-06 13:48] VITALS: RESP 16
[2025-02-06] MEDS: oxyCODONE-APAP 5-325 mg Tablet 6 TAB PO (13:48)
[2025-02-06 14:30] VITALS: BP 120/78; PULSE 78; RESP 16; TEMP 36.6; O2SAT 98
--- NOTE | 2025-02-06 14:30 | PC.NURSE ---
Due to being a holiday and no available pharmacies open in [facility] or surrounding areas patient will be discharged home with 6 tablets of percocet 5/325mg from the inpatient pharmacy. Controlled substance paper from the ER filled out, medication was pulled from the pyxis placed into a childsafe bottle and labelled appropriately.
== END 2025-02-06 15:00 | disposition home or self-care (01) | DRG 540 ==
LOC: OPOB 00:23 → OBGYN 00:23
PROVIDERS: Admitting Provider Obstetrics & Gynecology; PCP Family Medicine; Visit Provider Obstetrics & Gynecology
PROC: 10D00Z1 Extraction of Products of Conception, Low, Open Approach (ICD-10-PCS; CPT 59514; principal; 2025-02-04 16:00)
DX: O32.3XX0 Maternal care for face, brow and chin presentation, not applicable or unspecified (principal); O48.0 Post-term pregnancy; Z3A.40 40 weeks gestation of pregnancy; O99.344 Other mental disorders complicating childbirth; Z37.0 Single live birth; F41.9 Anxiety disorder, unspecified; F32.A Depression, unspecified; O99.52 Diseases of the respiratory system complicating childbirth; O99.62 Diseases of the digestive system complicating childbirth; K66.0 Peritoneal adhesions (postprocedural) (postinfection); J45.909 Unspecified asthma, uncomplicated
CPT/HCPCS: 36415; 51702; 59025; 59409; 85025; 85027; 86850; 86900; J0690; J1885; J2274; J2590; J2765; J2795; J3010; J3490; J7030; J7121; J9999